=== PATIENT | female | born 2005 | race Caucasian/White ===

== ENCOUNTER 2023-06-29 11:01 | Day surgery (SDC) | payer BC ==
[2023-06-29] MEDS ORDERED: LIDOCAINE HCL 2% 100 MG/5 ML IJ ONE (11:02)
[2023-06-29 12:57] LABS: HCG URINE TEST NEGATIVE (NEGATIVE)
[2023-06-29] MEDS ORDERED: DIPRIVAN 200 MG/20 ML IV ONE (13:58)
[2023-06-29] MEDS ORDERED: Lactated Ringers 1,000 ML IV ONE (14:21)
--- NOTE | 2023-06-29 16:42 | XRAY ---
Indication: Bilateral L3-L5 MBB. Intraoperative fluoroscopy provided for 16 seconds. Single digital spot image submitted for interpretation demonstrates posterior needle tips projecting over the expected left and right L3-L5 nerve roots. Correlate with intraoperative findings/report.
--- NOTE | 2023-06-29 17:06 | XRAY ---
16 seconds of fluoroscopy was used in surgery for a bilateral L3-L5 MBB.
== END 2023-06-29 14:29 | disposition home or self-care (01) ==
LOC: SDC-PAIN 11:01
PROVIDERS: ATTEND Psychiatry & Neurology Pain Medicine
DX: M47.816 Spondylosis without myelopathy or radiculopathy, lumbar region (principal)
CPT/HCPCS: 64493; 64494; 72020; 77002; 81025; J2704

== ENCOUNTER 2023-07-27 12:11 | Day surgery (SDC) | payer BC ==
[2023-07-27] MEDS ORDERED: BUPIVACAINE 0.5% VIAL IJ ONE (12:12)
[2023-07-27 12:24] LABS: HCG URINE TEST NEGATIVE (NEGATIVE)
[2023-07-27] MEDS ORDERED: TORAdol 30 mg Injection ONE (12:37)
[2023-07-27] MEDS ORDERED: BENADRYL 50 MG/ML ONE (12:37)
[2023-07-27] MEDS ORDERED: Lactated Ringers 1,000 ML IV ONE (13:08)
[2023-07-27] MEDS ORDERED: DIPRIVAN 200 MG/20 ML IV ONE ×2 (13:16→13:20)
--- NOTE | 2023-07-27 14:57 | XRAY ---
Indication: Bilateral L3-L5 MBB. Intraoperative fluoroscopy provided for 15 seconds. Single digital spot image submitted for interpretation demonstrates posterior needle tips projecting over the expected left and right L3-L5 nerve roots. Correlate with intraoperative findings/report.
--- NOTE | 2023-07-27 17:20 | XRAY ---
15 seconds of fluoroscopy was used in surgery for a bilateral L3-L5 MBB.
== END 2023-07-27 13:02 | disposition home or self-care (01) ==
LOC: SDC-PAIN 12:11
PROVIDERS: ATTEND Psychiatry & Neurology Pain Medicine
DX: M47.816 Spondylosis without myelopathy or radiculopathy, lumbar region (principal)
CPT/HCPCS: 64493; 64494; 72020; 77002; 81025; J1200; J1885; J2704

== ENCOUNTER 2023-10-13 13:22 | Day surgery (SDC) | payer BC ==
[2023-10-13] MEDS ORDERED: BUPIVACAINE 0.5% VIAL IJ ONE (13:23)
[2023-10-13] MEDS ORDERED: Depo-Medrol 40 MG/ML IM ONE (13:23)
[2023-10-13] MEDS ORDERED: LIDOCAINE HCL 1% 50 MG/5 ML VL PF IJ ONE (13:23)
[2023-10-13 13:42] LABS: HCG URINE TEST NEGATIVE (NEGATIVE)
[2023-10-13] MEDS ORDERED: Zofran 4 MG/2 ML VIAL ONE (13:46)
[2023-10-13] MEDS ORDERED: Versed 2 MG/2 ML Injection ONE (13:51)
[2023-10-13] MEDS ORDERED: TORAdol 30 mg Injection ONE (13:52)
[2023-10-13] MEDS ORDERED: BENADRYL 50 MG/ML ONE (13:52)
[2023-10-13] MEDS ORDERED: Lactated Ringers 1,000 ML IV ONE (14:35)
[2023-10-13] MEDS ORDERED: DIPRIVAN 200 MG/20 ML IV ONE ×2 (14:40→14:49)
--- NOTE | 2023-10-13 15:34 | XRAY ---
Indication: Left L3-L5 RFA. Intraoperative fluoroscopy provided for 25 seconds. 3 digital spot image submitted for interpretation demonstrates posterior needle tips projecting over the expected left L3-L5 nerve roots. Correlate with intraoperative findings/report.
--- NOTE | 2023-10-13 15:34 | XRAY ---
25 seconds of fluoroscopy was used in surgery for a left L3-L5 RFA.
== END 2023-10-13 15:20 ==
LOC: SDC-PAIN 13:22
PROVIDERS: ATTEND Psychiatry & Neurology Pain Medicine
DX: M47.816 Spondylosis without myelopathy or radiculopathy, lumbar region (principal)
CPT/HCPCS: 64635; 64636; 72100; 77002; 81025; J1200; J1885; J2001; J2250; J2405; J2704

== ENCOUNTER 2023-10-19 10:55 | Day surgery (SDC) | payer BC ==
[2023-10-19] MEDS ORDERED: Depo-Medrol 40 MG/ML IM ONE (10:56)
[2023-10-19] MEDS ORDERED: BUPIVACAINE 0.5% VIAL IJ ONE (10:56)
[2023-10-19] MEDS ORDERED: LIDOCAINE HCL 1% 50 MG/5 ML VL PF IJ ONE (10:56)
[2023-10-19 11:35] LABS: HCG URINE TEST NEGATIVE (NEGATIVE)
[2023-10-19] MEDS ORDERED: BENADRYL 50 MG/ML ONE (11:37)
[2023-10-19] MEDS ORDERED: TORAdol 30 mg Injection ONE (11:37)
[2023-10-19] MEDS ORDERED: Zofran 4 MG/2 ML VIAL ONE (11:37)
[2023-10-19] MEDS ORDERED: DIPRIVAN 200 MG/20 ML IV ONE (12:32)
[2023-10-19] MEDS ORDERED: Lactated Ringers 1,000 ML IV ONE (12:51)
--- NOTE | 2023-10-19 14:47 | XRAY ---
Indication: Right L3-L5 RFA. Intraoperative fluoroscopy was provided for 16 seconds. 5 digital spot image submitted for interpretation demonstrates posterior needle tips projecting over the expected right L3-L5 nerve roots. Correlate with intraoperative findings/report.
--- NOTE | 2023-10-19 15:13 | XRAY ---
16 seconds of fluoroscopy was used in surgery for a right L3-L5 RFA.
== END 2023-10-19 13:07 | disposition home or self-care (01) ==
LOC: SDC-PAIN 10:55
PROVIDERS: ATTEND Psychiatry & Neurology Pain Medicine
DX: M47.816 Spondylosis without myelopathy or radiculopathy, lumbar region (principal)
CPT/HCPCS: 64635; 64636; 72100; 77002; 81025; J1200; J1885; J2001; J2405; J2704

== ENCOUNTER 2024-05-09 21:51 | Emergency (ER) | payer BC ==
[2024-05-09 22:08] VITALS: RESP 18; TEMP 97.8
--- NOTE | 2024-05-09 22:35 | ERPHSYRPT ---
- History of Present Illness Time Seen by Provider: 05/09/24 22:05 Source: patient Exam Limitations: no limitations Patient Subjective Stated Complaint: c/o left shoulder pain and lower back pain Triage Nursing Assessment: patient brought to ED by mother with c/o left shoulder pain and bilat. lower back pain. patient states that the pain has been off and on the past few weeks. patient denies lifting anything heavy or twisting wrong. skin w/n/d, vitals wnl, gait steady, rates pain 6/10 and states it is a throbboing pain, patient doesn't appear to be in any distress at this time, Physician History: This is a 18-year-old white female patient has chronic low back pain and presents to the emergency department by private vehicle escorted by her mother but her mother is not in the room at the time of my evaluation. The patient's primary care provider is Dr. Granados. Patient does see a pain specialist, Dr. Salazar out of our facility. Today, approximately 5 PM, while the patient was at work, she had achiness and throbbing pain in her left shoulder. Patient did not suffer any fall or acute trauma. Patient already takes gabapentin at night and then typically any aches and pains are improved with Tylenol. However, she states she did not take any Tylenol prior to arrival to emergency department. Timing/Duration: today Method of Injury: other (No specific injury) Quality: aching, throbbing Back Pain Location: lumbar spine, paraspinous muscles Severity of Pain-Max: mild (Moderate) Severity of Pain-Current: mild (To moderate) Modifying Factors: Improves With: movement Associated Symptoms: lower back pain, No urinary incontinence, No loss of bowel control, No problems urinating, No numbness in legs/feet, No tingling in legs/feet Previous symptoms: same symptoms as today, no recent treatment Allergies/Adverse Reactions: latex Allergy (Verified 05/09/24 21:57) Hives meperidine [From Demerol] Allergy (Verified 05/09/24 21:57) morphine Allergy (Verified 05/09/24 21:57) Rapid Heart Beat petrolatum,white [From Petroleum Jelly] Allergy (Verified 05/09/24 21:57) diazepam [From Valium] Adverse Reaction (Verified 05/09/24 21:57) Home Medications: Gabapentin 600 mg PO HS 05/09/24 [History] Ondansetron [Ondansetron Odt] 8 mg PO DAILY PRN PRN 05/09/24 [History] Ubrogepant [Ubrelvy] 50 mg PO DAILY PRN PRN 05/09/24 [History] Hx Tetanus, Diphtheria Vaccination/Date Given: Yes Hx Influenza Vaccination/Date Given: No Hx Pneumococcal Vaccination/Date Given: No Travel Risk - International Travel Have you traveled outside of the country in past 3 weeks: No - Emerging Infectious Disease Are you exhibiting symptoms associated with any current EIDs: No - Review of Systems Constitutional: No Symptoms Eyes: No Symptoms Ears, Nose, & Throat: No Symptoms Respiratory: No Symptoms Cardiac: No Symptoms Abdominal/Gastrointestinal: No Symptoms Genitourinary Symptoms: No Symptoms Musculoskeletal: Back Pain, Joint Pain (Left shoulder), No Fall, No Injury Skin: No Symptoms Neurological: No Symptoms Psychological: No Symptoms Endocrine: No Symptoms Hematologic/Lymphatic: No Symptoms Immunological/Allergic: No Symptoms All Other Systems: Reviewed and Negative - Past Medical History Pertinent Past Medical History: Yes Neurological History: Migraines ENT History: No Pertinent History Cardiac History: No Pertinent History Respiratory History: No Pertinent History Endocrine Medical History: No Pertinent History Musculoskeletal History: No Pertinent History GI Medical History: No Pertinent History History: No Pertinent History Psycho-Social History: No Pertinent History Female Reproductive Disorders: No Pertinent History - Past Surgical History Past Surgical History: No - Female History Hx Last Menstrual Period: Hx Now: No - Social History Smoking Status: Never smoker Exposure to second hand smoke: No Drug Use: none - Social Determinants of Health Will the patient participate in the screening: Yes Do you worry about a steady place to live?: No Do you have any problems with any of the following?: No known problems In the past 12 months,have you had to go without utilities?: No Transportation Issues: No Has anyone in your support network made you feel unsafe?: No Have you or anyone in your house had to go w/o enough food: No - Nursing Vital Signs Nursing Vital Signs: Initial Vital Signs Temperature 97.8 F 05/09/24 21:59 Pulse Rate 77 05/09/24 21:59 Respiratory Rate 18 05/09/24 21:59 Blood Pressure 100/78 05/09/24 21:59 O2 Sat by Pulse Oximetry 97 05/09/24 21:59 Pain Scale Pain Intensity [Back] 6 Pain Intensity [Left Shoulder] 8 Pain Intensity 6 - Physical Exam General Appearance: no apparent distress, alert Eye Exam: PERRL/EOMI, eyes nml inspection Ears, Nose, Throat Exam: normal ENT inspection, moist mucous membranes Neck Exam: normal inspection, non-tender, supple, full range of motion Respiratory Exam: airway intact, No chest tenderness, No respiratory distress Gastrointestinal Exam: No tenderness Pelvic Exam: not done Rectal Exam: not done Back Exam: normal inspection, normal range of motion, No CVA tenderness, No vertebral tenderness Extremity Exam: normal inspection, normal range of motion, pelvis stable Neurologic Exam: alert, oriented x 3, cooperative, operations inspector II-XII nml as tested, normal mood/affect, nml cerebellar function, nml station & gait, sensation nml Skin Exam: normal color, warm, dry Lymphatic Exam: No adenopathy SpO2 Interpretation: normal SpO2: 97 O2 Delivery: Room Air - Course Nursing assessment & vital signs reviewed: Yes - Progress Progress: improved, pain not gone completely Progress Note: 05/09/24 22:35 My medical decision making and the assignment of low complexity of this patient medical condition today is based on review of the patient's past medical history, review the patient's medication list, reviewed patient drug allergy list, history present illness and physical findings on examination. The workup in this patient does not require any laboratory radiographic studies. The patient and I had a discussion regarding x-ray studies. We both agree that she is not in need of any emergent radiographic studies as she has not fallen or had any kind of trauma. Together, we opted to treat the symptoms and she has to follow-up with her primary care provider tomorrow, 05/10/2024, to make arrangements for an outpatient appointment. Differential diagnosis includes but is not limited to left shoulder strain, low back strain, acute on chronic back pain Counseled pt/family regarding: diagnosis, need for follow-up Medical Desision Making - Diagnostic Testing Diagnostic test were ordered, analyzed, and reviewed by me: No - Risk of complications The pt has a mod risk of morbidity or mortality based on: Need for prescription drug management - Departure Departure Disposition: Home Clinical Impression: Acute exacerbation of chronic low back pain, Left shoulder strain Condition: Stable Critical Care Time: No Referrals: MARY GRANADOS MD [Primary Care Provider] - Follow up/PCP as directed Additional Instructions: Do not take your gabapentin tonight. We agreed you would only take the Norflex medication at this time that we are providing you in the emergency department. Continue taking your Tylenol medication as instructed on the [id number] product packaging. Do not exceed 4 g of Tylenol in 24-hours. Call your primary care provider tomorrow, 05/10/2024, to make arranges for follow-up appointment for further evaluation and management Prescriptions: Prednisone 10 mg [Deltasone 10 mg] 10 mg PO TID #12 tablet Orphenadrine Citrate 100 mg [Norflex 100 MG Tablet] 100 mg PO DAILY #5 tab
[2024-05-09] MEDS ORDERED: Norflex 100 MG Tablet PO ONE (22:45)
[2024-05-09] MEDS ORDERED: TYLENOL 325 MG ONE (22:45)
[2024-05-09] MEDS ORDERED: DELTASONE 20 MG ONE (22:46)
[2024-05-09 22:48] VITALS: BP 106/75
[2024-05-09] MEDS: TYLENOL 325 MG PO ONE (22:48)
[2024-05-09] MEDS: DELTASONE 20 MG PO ONE (22:48)
[2024-05-09] MEDS: Norflex 100 MG Tablet PO ONE (22:49)
[2024-05-09 23:02] VITALS: PULSE 94; O2SAT 99
== END 2024-05-09 23:02 | disposition home or self-care (01) ==
LOC: ED 21:51
DX: S46.912A Strain of unspecified muscle, fascia and tendon at shoulder and upper arm level, left arm, initial encounter (principal); G89.29 Other chronic pain; M54.50 Low back pain, unspecified; Z79.52 Long term (current) use of systemic steroids; Z79.899 Other long term (current) drug therapy
CPT/HCPCS: 99283; A9270-GY